=== PATIENT | female | born 1930 | race Caucasian/White ===

== ENCOUNTER 2019-03-05 16:32 | Emergency (ER) | payer OTHER ==
[2019-03-05 16:44] VITALS: BP 125/69; PULSE 77; TEMP 97.8; BMI 25.7
--- NOTE | 2019-03-05 16:49 | PDOC ---
History of Present Illness - General Chief Complaint: Pain Stated Complaint: LEFT SHOULDER PAIN FOR A FEW DAYS Time Seen by Provider: 03/05/19 16:48 Past History - Past Medical History Allergies/Adverse Reactions: Allergies Allergy/AdvReac Type Severity Reaction Status Date / Time No Known Drug Allergies Allergy Verified 03/05/19 16:34 Home Medications: Ambulatory Orders Cholecalciferol (Vitamin D3) [Vitamin D3] 2,000 unit PO DAILY 03/05/19 Gurwinder Chu B.lactis [Probiotic] 1 each PO DAILY 03/05/19 Pravastatin Sodium 10 mg PO DAILY 03/05/19 Anemia: No Asthma: No Cancer: No Cardiac Disorders: No CVA: No COPD: No CHF: No Dementia: No Diabetes: No GI Disorders: No Disorders: No HTN: Yes Hypercholesterolemia: Yes Liver Disease: No Psychiatric Problems: Yes (ANXIETY) Seizures: No Thyroid Disease: Yes - Surgical History Abdominal Surgery: No Appendectomy: Yes Cardiac Surgery: No Cholecystectomy: No Lung Surgery: No Neurologic Surgery: No Orthopedic Surgery: No - Psycho Social/Smoking Cessation Hx Smoking History: Former smoker Have you smoked in the past 12 months: No If you are a former smoker, when did you quit?: 32 YEARS Information on smoking cessation initiated: No Hx Alcohol Use: Yes (1 VODKA A DAY) Drug/Substance Use Hx: No Substance Use Type: None Hx Substance Use Treatment: No *Physical Exam - Vital Signs Last Vital Signs Temp Pulse Resp BP Pulse Ox 97.8 F 77 16 125/69 97 03/05/19 16:33 03/05/19 16:33 03/05/19 16:33 03/05/19 16:33 03/05/19 16:33 Discharge - Discharge Information Condition: Stable - Follow up/Referral Referrals: Ruiz Vaca MD [Primary Care Provider] - - Patient Discharge Instructions - Post Discharge Activity
--- NOTE | 2019-03-05 18:22 | PDOC ---
Documentation entered by Janie Ta SCRIBE, acting as scribe for Reginaldo Bustos MD. Reginaldo Bustos MD: This documentation has been prepared by the Cely najera Adrianna, SCRIBE, under my direction and personally reviewed by me in its entirety. I confirm that the documentation accurately reflects all work, treatment, procedures, and medical decision making performed by me. History of Present Illness - General Chief Complaint: Pain Stated Complaint: LEFT SHOULDER PAIN FOR A FEW DAYS Time Seen by Provider: 03/05/19 16:48 - History of Present Illness Initial Comments: The patient is an 88 year old female, with a significant PMH of HTN, HLD, anxiety, and hypothyroidism, who presents to the ED for left neck/shoulder pain for 2 days. Patient complains of left-sided neck pain that radiates into the posterior aspect of the left shoulder down to the left side of the low back. She notes that the pain is sharp and constant in nature. Patient denies any pain that radiates down the arm, but notes she cannot lift her LUE secondary to the pain. She denies any trauma or injury to these areas. Denies any history of similar symptoms. Allergies: NKA, NKDA Surgical History: Appendectomy Social History: 1 vodka a day. Former smoker (quit >30 years ago). Denies illicit drug use PCP: Dr. Vaca Past History - Past Medical History Allergies/Adverse Reactions: Allergies Allergy/AdvReac Type Severity Reaction Status Date / Time No Known Drug Allergies Allergy Verified 03/05/19 16:34 Home Medications: Ambulatory Orders Cholecalciferol (Vitamin D3) [Vitamin D3] 2,000 unit PO DAILY 03/05/19 Cyclobenzaprine HCl 5 mg PO TID PRN #15 tablet 03/05/19 Ibuprofen 400 mg PO TID PRN #15 tablet 03/05/19 L.acidoph,Paracasei, B.lactis [Probiotic] 1 each PO DAILY 03/05/19 Pravastatin Sodium 10 mg PO DAILY 03/05/19 Anemia: No Asthma: No Cancer: No Cardiac Disorders: No CVA: No COPD: No CHF: No Dementia: No Diabetes: No GI Disorders: No Disorders: No HTN: Yes Hypercholesterolemia: Yes Liver Disease: No Psychiatric Problems: Yes (ANXIETY) Seizures: No Thyroid Disease: Yes - Surgical History Abdominal Surgery: No Appendectomy: Yes Cardiac Surgery: No Cholecystectomy: No Lung Surgery: No Neurologic Surgery: No Orthopedic Surgery: No - Psycho Social/Smoking Cessation Hx Smoking History: Former smoker Have you smoked in the past 12 months: No If you are a former smoker, when did you quit?: 32 YEARS Information on smoking cessation initiated: No Hx Alcohol Use: Yes (1 VODKA A DAY) Drug/Substance Use Hx: No Substance Use Type: None Hx Substance Use Treatment: No Review of Systems - Review of Systems Comments:: GENERAL/CONSTITUTIONAL: No fever or chills. No weakness. HEAD, EYES, EARS, NOSE AND THROAT: No change in vision. No ear pain or discharge. No sore throat. CARDIOVASCULAR: No chest pain or shortness of breath. RESPIRATORY: No cough, wheezing, or hemoptysis. GASTROINTESTINAL: No nausea, vomiting, diarrhea or constipation. GENITOURINARY: No dysuria, frequency, or change in urination. MUSCULOSKELETAL: +Left-sided neck pain that radiates into the posterior aspect of the right shoulder and down into the left side of the low back. +Cannot lift LUE 2/2 pain. No joint or muscle swelling. SKIN: No rash NEUROLOGIC: No headache, vertigo, loss of consciousness, or change in strength/ sensation. ENDOCRINE: No increased thirst. No abnormal weight change. HEMATOLOGIC/LYMPHATIC: No anemia, easy bleeding, or history of blood clots. ALLERGIC/IMMUNOLOGIC: No hives or skin allergy. *Physical Exam - Vital Signs Last Vital Signs Temp Pulse Resp BP Pulse Ox 97.8 F 77 16 125/69 97 03/05/19 16:33 03/05/19 16:33 03/05/19 16:33 03/05/19 16:33 03/05/19 16:33 - Physical Exam GENERAL: Awake, alert, and fully oriented, in no acute distress HEAD: No signs of trauma EYES: PERRLA, EOMI, sclera anicteric, conjunctiva clear ENT: Auricles normal inspection, hearing grossly normal, nares patent, oropharynx clear without exudates. Moist mucosa NECK: Full ROM without pain, supple, no lymphadenopathy, JVD, or masses. No tenderness of the cervical spine to palpation. LUNGS: Breath sounds full and clear. No tachypnea, dyspnea, or splinting with deep inspiration. No wheezes, and no crackles HEART: Regular rate and rhythm, normal S1 and S2, no murmurs, rubs or gallops ABDOMEN: Soft, nontender, normoactive bowel sounds. No guarding, no rebound. No masses EXTREMITIES: No tenderness of limited ROM of the left shoulder joint. No swelling, erythema, effusion or warmth. BACK: There is significant spasm present of the left trapezius muscle and the left upper back muscles. There is mild tenderness to palpation along the medial and lateral scapular borders. No clubbing or cyanosis. No CVA tenderness. NEUROLOGICAL: Cranial nerves II through XII grossly intact. Normal speech, normal gait SKIN: Warm, Dry, normal turgor, no rashes or lesions noted. ED Treatment Course - RADIOLOGY Radiology Studies Ordered: Category Date Time Status SHOULDER-LEFT [RAD] Stat Radiology 03/05/19 16:48 Taken Medical Decision Making - Medical Decision Making 03/05/19 18:21 Patient with spasm and tenderness of the trapezius and upper back. Otherwise normal physical exam. Most likely musculoskeletal. Shoulder x-ray is negative. Symptomatic treatment and follow-up as directed. No significant pain or other distress at discharge with daughter to follow-up as directed Discharge - Discharge Information Problems reviewed: Yes Clinical Impression/Diagnosis: Upper back pain on left side Condition: Stable Disposition: HOME - Admission No - Additional Discharge Information Prescriptions: Cyclobenzaprine HCl 5 mg PO TID PRN #15 tablet PRN Reason: Muscle pain and spasm Ibuprofen 400 mg PO TID PRN #15 tablet PRN Reason: Pain - Follow up/Referral Referrals: Ruiz Vaca MD [Primary Care Provider] - 3 days - Patient Discharge Instructions Patient Printed Discharge Instructions: Thoracic Back Pain Additional Instructions: Rest of the arms and upper body. Muscle relaxant medication as directed. Warm compresses or heat to the affected area If further symptoms develop, return to the ER otherwise follow-up primary physician as directed. - Post Discharge Activity
== END 2019-03-05 17:44 | disposition home or self-care (01) ==
LOC: FER 16:32
DX: M54.9 Dorsalgia, unspecified (principal); I10 Essential (primary) hypertension; E78.5 Hyperlipidemia, unspecified; F41.9 Anxiety disorder, unspecified; E03.9 Hypothyroidism, unspecified; Z87.891 Personal history of nicotine dependence
CPT/HCPCS: 73030-TC-LT-FY; 99282-25

== ENCOUNTER 2021-06-03 11:12 | Emergency (ER) | payer OTHER ==
[2021-06-03 11:22] VITALS: BP 121/52; PULSE 90; TEMP 98.3; BMI 26.5
[2021-06-03] MEDS ORDERED: IBUPROFEN 200 MG TABLET PO ONE (11:34)
[2021-06-03] MEDS ORDERED: LIDOCAINE 5% TOPICAL PATCH TP ONE (11:34)
[2021-06-03] MEDS ORDERED: ACETAMINOPHEN 325 MG TABLET (FP) PO ONE (11:35)
[2021-06-03] MEDS ORDERED: IBUPROFEN 100 MG/5 ML UNIT DOSE CUPS ONE (11:39)
[2021-06-03] MEDS ORDERED: ACETAMINOPHEN 325 MG TABLET (FP) ONE (11:39)
[2021-06-03] MEDS ORDERED: LIDOCAINE 5% TOPICAL PATCH ONE (11:39)
[2021-06-03] MEDS ORDERED: METHOCARBAMOL 500 MG TABLET PO ONE (11:43)
[2021-06-03] MEDS ORDERED: METHOCARBAMOL 500 MG TABLET ONE (11:47)
[2021-06-03] MEDS ORDERED: LIDOCAINE PATCH REMOVAL MC SCH (22:00)
== END 2021-06-03 12:08 | disposition home or self-care (01) ==
LOC: FER 11:12
DX: S16.1XXA Strain of muscle, fascia and tendon at neck level, initial encounter (principal); Y99.9 Unspecified external cause status
CPT/HCPCS: 99283-25